=== PATIENT | female | born 1955 | race Caucasian/White ===

== ENCOUNTER 2023-06-12 06:41 | Emergency (ER) | payer MEDICARE, OTHER, SELFPAY ==
[2023-06-12 06:47] VITALS: BP 191/94; PULSE 73; RESP 16; TEMP 36.2; O2SAT 98
--- NOTE | 2023-06-12 07:03 | ED.GENADUL_ITS ---
Discharge Plan Disposition Patient Disposition: Home Condition: Stable Discharge Details Clinical Impression: Urinary tract infection Primary Care Provider: Unknown,Unknown ED Provider: Yehuda Thayer Home Meds and New Rx's Prescriptions: New nitrofurantoin monohyd/m-cryst [Macrobid] 100 mg capsule 100 mg PO Q12H 7 Days Qty: 14 0RF Rx Instructions: must administer with a meal/food Discharge Instructions Instructions: Urinary Tract Infection in Women (ED) Additional Instructions: If not better within a week follow-up with your primary care provider. Your initial blood pressure here was elevated, I would recommend having this rechecked with your primary care provider within 1 to 2 weeks. If you feel more ill, have high fevers or severe back or abdominal pain return to the emergency department for reevaluation HPI General Mode of arrival: ambulatory . Date/Time Provider Initiated Documentation: 06/12/23 06:55 . Limitations to Documentation: no limitations . Information obtained by: patient . History of Present Illness 67 year old F presents to the emergency department with the chief complaint of burning with urination, described as moderate, Patient started experiencing this hour(s) (2) and it has been constant. No relieving factors improve symptom(s), No exacerbating factors reported . Patient notes no other symptoms.. Patient did receive the following treatments prior to arrival, none Related Data Home Medications Medication Instructions Recorded Confirmed nitrofurantoin 100 mg PO Q12H 7 days #14 caps 06/12/23 monohydrate/macrocrystals 100 mg capsule (Macrobid) Previous Rx's Medication Instructions Recorded nitrofurantoin 100 mg PO Q12H 7 days #14 caps 06/12/23 monohydrate/macrocrystals 100 mg capsule (Macrobid) Allergies Allergy/AdvReac Type Severity Reaction Status Date / Time No Known Allergies Allergy Unverified 06/12/23 06:52 General Stated Complaint: Urinary LYRIC: 4 Review of Systems All systems reviewed & are unremarkable except as noted in HPI and below Constitutional Constitutional: Denies chills and Denies fever(s) Cardiovascular Cardiovascular: Denies chest pain and Denies dyspnea Respiratory Respiratory: Denies dyspnea Gastrointestinal Gastrointestinal: Denies abdominal pain, Denies nausea and Denies vomiting Genitourinary Genitourinary: Reports other (dysuria) Integumentary/Breasts Skin/Breast: Denies rash Exam Const General: no acute distress Orientation: alert [facility] Head: normal to inspection Ears: external ears normal General nose exam: external nose normal Mouth: moist mucous membranes Eyes General: appearance normal, both eyes and all related structures Neck Neck: normal visual inspection Resp Effort & Inspection: normal respiratory effort and able to speak in complete sentences Cardio Rate: regular rate GI Palpation: soft and nontender Back/Spine/Pelvis Back: No no CVA tenderness Skin General skin exam: no rashes or lesions noted Neuro General: patient alert and patient oriented x3 Extrem General: normal to inspection Psych Mental Status: mental status grossly normal Course Vital Signs Vital signs: Vital Signs Temperature 36.2 C L 06/12/23 06:47 Pulse 73 06/12/23 06:47 Respiratory Rate 16 06/12/23 06:47 Blood Pressure 191/94 H 06/12/23 06:47 Pulse Oximetry 98 06/12/23 06:47 Temperature 36.2 C L 06/12/23 06:47 Pulse 73 06/12/23 06:47 Respiratory Rate 16 06/12/23 06:47 Blood Pressure 191/94 H 06/12/23 06:47 Pulse Oximetry 98 06/12/23 06:47 Oxygen Delivery Method Room Air 06/12/23 06:47 Oxygen Flow Rate 0 06/12/23 06:47 Pain Level 5 06/12/23 06:47 Medical Decision Making 67-year-old female who denies any significant chronic medical problems, comes in with burning with urination starting this morning. She states she had a UTI over a week ago and finished antibiotics on Wednesday, and had felt well until this morning. Denies any fevers, back pain, abdominal pain. She appears well on exam, alert oriented x 4 in no distress. She has no CVA tenderness, no abdominal tenderness. Will check UA, given well appearance, no fevers do not feel any other labs or imaging indicated. No symptoms to suggest sepsis or pyelonephritis. Urine with significant amount of white blood cells, given her symptoms will initiate Macrobid. She is stable still appears well so do not feel any other labs or imaging indicated. She is stable for discharge, advised to follow-up with her primary care provider and return precautions given. Differential Diagnosis Differential Diagnosis: uti, cystitis, pyelo Quality:SDOH Health Related Social Needs: No Data to Display PFSH All Active Problems (Updated 06/12/23 @ 07:49 by Yehuda Thayer MD) Urinary tract infection (Acute) Social History Smoking/Tobacco Use Status: Never Smoking risk assessment performed?: Yes Alcohol Intake: never Substance use type: does not use
[2023-06-12 07:24] LABS: Bilirubin Negative (Negative); Blood Moderate (Negative); Clarity Cloudy (Clear); Glucose Negative (Negative); Ketones Negative (Negative); Leukocyte Esterase Large (Negative); Nitrite Negative (Negative); Specific Gravity 1.015 (1.005-1.025); Urobilinogen 0.2 mg/dL (Up to 0.2); pH 6.5 (5-8)
[2023-06-12 07:32] LABS: C & S Indicated? Yes; WBC >50 HPF (0-5)
[2023-06-12] MEDS: MacroBID 100 MG CAP PO (07:52)
--- NOTE | 2023-06-15 08:36 | NUR.NOTE ---
Accessed chart to determine antibiotic on discharge for urine culture result. Nursing Note:
--- NOTE | 2023-06-15 08:38 | W.ED.FU ---
Date of service: 06/15/23 Time of Service: 08:38 Follow Up Plan: This patient's urine culture returned on my shift. She was growing 50-100,000 colony units/mL of E. coli which was pansensitive. She was discharged on nitrofurantoin 100 mg twice daily for 7 days. No change in antibiotics indicated.
== END 2023-06-12 07:58 | disposition home or self-care (01) ==
PROVIDERS: Emergency Provider Emergency Medicine; PCP Registered Nurse
DX: N39.0 Urinary tract infection, site not specified (principal)
CPT/HCPCS: 87077; 99283; 81003; 81015; 87086; 87186